=== PATIENT | female | born 1985 | race African-American/Black ===

== ENCOUNTER 2019-08-07 21:25 | Emergency (ER) | payer OTHER ==
[~2019-08-07] VITALS: Ht 160 cm; Wt 88.5 kg
[2019-08-07 21:41] VITALS: BP 122/57
== END 2019-08-07 22:30 | disposition home or self-care (01) ==
LOC: ER 21:25
DX: J06.9 Acute upper respiratory infection, unspecified (principal); J02.9 Acute pharyngitis, unspecified